=== PATIENT | female | born 1970 | race Caucasian/White ===

== ENCOUNTER 2016-12-06 10:02 | Emergency (ER) | END 2016-12-06 12:11 | disposition home or self-care (01) | DX: R10.31 Right lower quadrant pain (principal) | CPT/HCPCS: 74176; 80053; 81001; 83690; 85025; J2405; J7030; Z7610 ==

== ENCOUNTER 2016-12-13 01:43 | Emergency (ER) | payer MEDICAID ==
[~2016-12-13] VITALS: Ht 154.9 cm; Wt 65.5 kg
[~2016-12-13 01:43] MED LIST: IBUP-1542 PO
[2016-12-13 01:55] VITALS: Ht 154.9 cm; Wt 65.5 kg
--- NOTE | 2016-12-13 04:29 | ERD ---
ER Documentation Chief Complaint Date/Time DATE: 12/13/16 TIME: 04:27 Chief Complaint palpitation and left sided CP after hearing that a family member today HPI 46-year-old presents here in emergency department for complaints of left-sided chest pain and palpitations started last night. Patient started to have the pain after hearing a bad news, a family member yesterday. Patient describes the pain as sharp pain, 6/10 scale, intermittent, accompanied with palpitations. Patient denies any numbness or tingling. The pain does not radiate. ROS All systems reviewed and are negative except as per history of present illness. Medications Home Meds Active Scripts Ibuprofen* (Motrin*) 600 Mg Tab, 600 MG PO Q6H Y for PAIN AND OR ELEVATED TEMP, #30 TAB Prov:SAMEER CHEN PA-C 12/06/16 Allergies Allergies: Coded Allergies: No Known Allergy (Unverified , 12/06/16) PMhx/Soc History of Surgery: Yes (C SECTION, CHOLECYSTECTOMY) Anesthesia Reaction: No Hx Neurological Disorder: No Hx Respiratory Disorders: No Hx Cardiac Disorders: Yes (HIGH CHOLESTEROL ) Hx Psychiatric Problems: No Hx Miscellaneous Medical Probl: No Hx Alcohol Use: No Hx Substance Use: No Hx Tobacco Use: No Smoking Status: Never smoker FmHx Family History: No coronary disease, No diabetes, No other Physical Exam Vitals Vital Signs Date Time Temp Pulse Resp B/P Pulse Ox O2 Delivery O2 Flow Rate FiO2 12/13/16 01:55 98.0 91 24 145/87 98 Physical Exam GENERAL: The patient is well developed and appropriate for usual state of health, in no apparent distress. CHEST: Clear to auscultation bilaterally. There are no rales, wheezes or rhonchi. HEART: Regular rate and rhythm. No murmurs, clicks, rubs or gallops. No S3 or S4. ABDOMEN: Soft, nontender and nondistended. Good bowel sounds. No rebound or guarding. No gross peritonitis. No gross organomegaly or masses. No Kennedy sign or McBurney point tenderness. BACK: No midline or flank tenderness. EXTREMITIES: Equal pulses bilaterally. There is no peripheral clubbing, cyanosis or edema. No focal swelling or erythema. Full range of motion. Grossly neurovascularly intact. NEURO: Alert and oriented. Cranial nerves 2-12 intact. Motor strength in all 4 extremities with 5/5 strength. Sensation grossly intact. Normal speech and gait. SKIN: There is no apparent rash or petechia. The skin is warm and dry. HEMATOLOGIC AND LYMPHATIC: There is no evidence of excessive bruising or lymphedema. No gross cervical, axillary, or inguinal lymphadenopathy. Result Diagram: 12/13/1641112/13/16411 Results 24 hrs Laboratory Tests Test 12/13/16 04:12 Alanine Aminotransferase (ALT/SGPT) 50IU/L Albumin 4.5g/dl Albumin/Globulin Ratio 1.32 Alkaline Phosphatase 103IU/L Anion Gap 18 Aspartate Amino Transf (AST/SGOT) 30IU/L Basophils # 0.010^3/ul Basophils % 0.7% Blood Urea Nitrogen 12mg/dl Calcium Level 10.0mg/dl Carbon Dioxide Level 24mmol/L Chloride Level 106mmol/L Creatinine 0.57mg/dl Direct Bilirubin 0.00mg/dl Eosinophils # 0.110^3/ul Eosinophils % 1.7% Globulin 3.40g/dl Glucose Level 110mg/dl Hematocrit 39.0% Hemoglobin 13.4g/dl Indirect Bilirubin 0.2mg/dl Lymphocytes # 1.710^3/ul Lymphocytes % 25.1% Mean Corpuscular Hemoglobin 29.3pg Mean Corpuscular Hemoglobin Concent 34.3g/dl Mean Corpuscular Volume 85.4fl Mean Platelet Volume 7.9fl Monocytes # 0.410^3/ul Monocytes % 6.2% Neutrophils # 4.610^3/ul Neutrophils % 66.3% Nucleated Red Blood Cells # 0.010^3/ul Nucleated Red Blood Cells % 0.0/100WBC Platelet Count 48944^3/UL Potassium Level 4.3mmol/L Red Blood Count 4.5710^6/ul Red Cell Distribution Width 12.9% Sodium Level 144mmol/L Total Bilirubin 0.2mg/dl Total Protein 7.9g/dl Troponin I < 0.012ng/ml White Blood Count 6.910^3/ul EKG was done, read by me and is normal sinus rhythm at a rate of 90, normal axis , there is no ST changes or changes in the EKG that indicates any cardiac emergencies at this time. Patient's EKG was also reviewed by Dr. Guajardo. Impression: no acute findings on EKG PROCEDURE: XR Chest. CLINICAL INDICATION: Chest Pain. TECHNIQUE: Portable single view of the chest COMPARISON: None. FINDINGS: The cardiomediastinal silhouette appears within normal limits. The lungs are clear and no pleural effusion or significant edema is seen. No bony abnormality is seen. IMPRESSION: No definite acute pulmonary disease. RPTAT: HLBE Jennifer Beckett Physician Date Time Electronically viewed and signed by Jennifer Beckett Physician on 12/13/2016 04 :43 LE/ CC: MATHIEU GOLDBERG NP Procedures/MDM Medical Decision Making: Patient symptoms is likely consistent with anxiety related, possible stress related symptoms. There is low suspicion for cardiopulmonary emergencies at this time. Patient has low risk factors. EKG is normal, there is no changes in the EKG that indicates cardiac emergencies. Chest X-ray does not show cardiopulmonary emergencies at this time. There is low suspicion for aortic aneurysm, myocardial infarction, pneumothorax, pleural effusion, pulmonary embolism, or any other cardiopulmonary emergencies at this time. Cardiac markers are normal. She is advised to see primary care doctor, possibly see a loose hand packer specialist for echocardiogram or possible stress test. Patient is advised to return to emergency department for any worsening symptoms. Patient is given prescription for Xanax up with symptoms. Departure Diagnosis: Primary Impression: Anxiety Condition: Stable Patient Instructions: Anxiety Reaction MATHIEU GOLDBERG NP Dec 13, 2016 04:29
[2016-12-13 04:39] LABS: BASOPHILS % 0.7 % (0.0-2.0); EOSINOPHILS # 0.1 10^3/ul (0.0-0.5); EOSINOPHILS % 1.7 % (0.0-7.0); HEMOGLOBIN 13.4 g/dl (12.0-16.0); LYMPHOCYTES # 1.7 10^3/ul (0.8-2.9); LYMPHOCYTES % 25.1 % (15.0-51.0); MEAN CORPUSCULAR HEMOGLOBIN 29.3 pg (29.0-33.0); MEAN CORPUSCULAR HGB CONC 34.3 g/dl (32.0-37.0); MEAN CORPUSCULAR VOLUME 85.4 fl (82.0-101.0); MEAN PLATELET VOLUME 7.9 fl (7.4-10.4); MONOCYTE # 0.4 10^3/ul (0.3-0.9); MONOCYTES % 6.2 % (0.0-11.0); NEUTROPHIL # 4.6 10^3/ul (1.6-7.5); NEUTROPHILS % 66.3 % (39.0-77.0); PLATELET COUNT 351 10^3/UL (140-440); RED BLOOD COUNT 4.57 10^6/ul (4.20-5.40); RED CELL DISTRIBUTION WIDTH 12.9 % (11.5-14.5); UNCORRECTED WBC 6.9 10^3/ul (4.8-10.8); WHITE BLOOD COUNT 6.9 10^3/ul (4.8-10.8)
[2016-12-13 04:41] LABS: CONDITION 1
[2016-12-13 04:44] LABS: ALBUMIN 4.5 g/dl (3.3-4.9); CHLORIDE 106 mmol/L (97-110)
--- NOTE | 2016-12-13 04:44 | RADRPT ---
PROCEDURE: XR Chest. CLINICAL INDICATION: Chest Pain. TECHNIQUE: Portable single view of the chest COMPARISON: None. FINDINGS: The cardiomediastinal silhouette appears within normal limits. The lungs are clear and no pleural e ffusion or significant edema is seen. No bony abnormality is seen. IMPRESSION: No definite acute pulmonary disease. RPTAT: HLBE Jennifer Beckett Physician Date Time Electronically viewed and signed by Jennifer Beckett, Physician on 12/13/2016 04:43 LE/
[2016-12-13 04:45] LABS: POTASSIUM 4.3 mmol/L (3.5-5.1); SODIUM 144 mmol/L (135-144)
[2016-12-13 04:47] LABS: ALBUMIN/GLOBULIN RATIO 1.32; ALKALINE PHOSPHATASE 103 IU/L (42-121); ANION GAP 18 (8-16); ASPARTATE AMINO TRANSFERASE 30 IU/L (15-46); BILIRUBIN,INDIRECT 0.2 mg/dl (0-1.1); BILIRUBIN,TOTAL 0.2 mg/dl (0.2-1.3); BLOOD UREA NITROGEN 12 mg/dl (7-20); CARBON DIOXIDE 24 mmol/L (21-31); CREATININE 0.57 mg/dl (0.44-1.00); GLUCOSE 110 mg/dl (70-220); TOTAL PROTEIN 7.9 g/dl (6.1-8.1)
[2016-12-13 04:48] LABS: ALANINE AMINOTRANSFERASE 50 IU/L (13-69)
[2016-12-13 05:00] LABS: TROPONIN-I < 0.012 ng/ml (0.00-0.12)
[2016-12-13] MEDS ORDERED: ALPR1TAB2 PO (05:14)
== END 2016-12-13 05:51 | disposition home or self-care (01) ==
LOC: FTE 01:43
DX: F41.9 Anxiety disorder, unspecified (principal)
CPT/HCPCS: 36415; 71010; 80053; 84484; 85025; 93005; Z7502

== ENCOUNTER 2016-12-28 01:26 | Emergency (ER) | payer MEDICAID ==
[~2016-12-28] VITALS: Ht 157.5 cm; Wt 64.1 kg
[~2016-12-28 01:26] MED LIST changes: +ALPR1TAB2 PO
[2016-12-28 01:40] VITALS: Ht 157.5 cm; Wt 64.1 kg
[2016-12-28 02:06] LABS: URINE BLOOD (Dip) POC 2+ (NEGATIVE)
[2016-12-28] MEDS ORDERED: FAMOTIDINE 20 MG INJ IV ONE (02:23)
[2016-12-28] MEDS ORDERED: ONDANSETRON 4 MG INJ IV ONE (02:23)
[2016-12-28] MEDS ORDERED: SOD CHLORIDE 0.9% 1,000 ML IV ONE (02:23)
[2016-12-28] MEDS ORDERED: LIDOCAINE/MYLANTA 40 ML BTL PO ONE (02:24)
[2016-12-28] MEDS ORDERED: LORAZEPAM 2 MG INJ IV ONE (02:30)
[2016-12-28 02:32] LABS: BASOPHILS % 0.4 % (0.0-2.0); EOSINOPHILS % 0.4 % (0.0-7.0); HEMATOCRIT 39.9 % (37.0-47.0); HEMOGLOBIN 13.9 g/dl (12.0-16.0); LYMPHOCYTES # 2.1 10^3/ul (0.8-2.9); LYMPHOCYTES % 19.3 % (15.0-51.0); MEAN CORPUSCULAR HEMOGLOBIN 29.7 pg (29.0-33.0); MEAN CORPUSCULAR HGB CONC 34.7 g/dl (32.0-37.0); MEAN CORPUSCULAR VOLUME 85.5 fl (82.0-101.0); MONOCYTES % 8.9 % (0.0-11.0); NEUTROPHIL # 7.8 10^3/ul (1.6-7.5); PLATELET COUNT 375 10^3/UL (140-440); RED BLOOD COUNT 4.67 10^6/ul (4.20-5.40)
[2016-12-28 02:33] LABS: ADD UMIC YES; URINE BILIRUBIN (Dip) NEGATIVE (NEGATIVE); URINE BLOOD (Dip) 2+ (NEGATIVE); URINE COLOR LT. YELLOW (YELLOW); URINE GLUCOSE (Dip) NEGATIVE (NEGATIVE); URINE KETONES (Dip) NEGATIVE (NEGATIVE); URINE LEUKOCYTE ESTERASE (Dip) NEGATIVE (NEGATIVE); URINE NITRITE (Dip) NEGATIVE (NEGATIVE); URINE UROBILINOGEN (Dip) 0.2 E.U./dL (0.1-1.0)
[2016-12-28 02:34] LABS: URINE TOTAL PROTEIN (Dip) NEGATIVE (NEGATIVE)
[2016-12-28 02:35] LABS: CONDITION 1
[2016-12-28 02:38] VITALS: BP 143/68; PULSE 79; RESP 22; TEMP 98.6
[2016-12-28 02:40] LABS: BACTERIA,URINE RARE; SQUAMOUS EPITHELIAL CELL,UR FEW
[2016-12-28 02:41] LABS: ALBUMIN 4.5 g/dl (3.3-4.9)
[2016-12-28 02:42] LABS: POTASSIUM 3.5 mmol/L (3.5-5.1)
--- NOTE | 2016-12-28 02:42 | RADRPT ---
PROCEDURE: XR Abdomen. CLINICAL INDICATION: Abdominal pain TECHNIQUE: Supine AP views of the abdomen. COMPARISON: None. FINDINGS: Gas and stool are seen within nondilated large bowel. There are no dilated loops of small bowel to suggest a bowel obstruction. No abnormal calcifications are identified. The patient is status post cholecystectomy. IMPRESSION: 1. Nonobstructive bowel gas pattern. 2. Status post cholecystectomy. RPTAT: HTAR .Chaparro Hendrix MD, MD Date Time Electronically viewed and signed by .Chaparro Hendrix MD, MD on 12/28/2016 02:41 .R/
[2016-12-28 02:43] LABS: CREATININE 0.67 mg/dl (0.44-1.00)
[2016-12-28 02:44] LABS: ALBUMIN/GLOBULIN RATIO 1.4; BILIRUBIN,INDIRECT 0.4 mg/dl (0-1.1); BILIRUBIN,TOTAL 0.4 mg/dl (0.2-1.3); TOTAL PROTEIN 7.7 g/dl (6.1-8.1)
[2016-12-28] MEDS: morphine 4 MG/ML VIAL IV ONE ×2 (02:49→02:56)
--- NOTE | 2016-12-28 04:06 | ERD ---
ER Documentation Chief Complaint Date/Time DATE: 12/28/16 TIME: 04:05 Chief Complaint abd pain 8 days HPI This is a 46 year female comes in with abdominal pain for the past 8 days. Pain is epigastric in location. Burning in sensation. Mild to moderate in intensity. Associated nausea and vomiting. 2 episodes of vomiting which are nonbilious. Nonbloody vomit. No change in stool habits. No other current complaints. ROS All systems reviewed and are negative except as per history of present illness. Medications Home Meds Active Scripts Alprazolam* (Xanax*) 1 Mg Tab, 1 MG PO Q8H Y for ANXIETY, #20 TAB Prov:MATHIEU GOLDBERG HANGER 12/13/16 Ibuprofen* (Motrin*) 600 Mg Tab, 600 MG PO Q6H Y for PAIN AND OR ELEVATED TEMP, #30 TAB Prov:SAMEER CHEN PA-C 12/06/16 Allergies Allergies: Coded Allergies: No Known Allergy (Unverified , 12/06/16) PMhx/Soc History of Surgery: Yes (C SECTION, CHOLECYSTECTOMY) Anesthesia Reaction: No Hx Neurological Disorder: No Hx Respiratory Disorders: No Hx Cardiac Disorders: Yes (HIGH CHOLESTEROL ) Hx Psychiatric Problems: Yes Hx Miscellaneous Medical Probl: No Hx Alcohol Use: No Hx Substance Use: No Hx Tobacco Use: No Smoking Status: Never smoker Physical Exam Vitals Vital Signs Date Time Temp Pulse Resp B/P Pulse Ox O2 Delivery O2 Flow Rate FiO2 12/28/16 02:38 98.6 79 22 143/68 98 Room Air 12/28/16 01:40 98.5 74 16 138/74 100 Physical Exam Const: [] Head: Atraumatic Eyes: Normal Conjunctiva ENT: Normal External Ears, Nose and Mouth. Neck: Full range of motion..~ No meningismus. Resp: Clear to auscultation bilaterally Cardio: Regular rate and rhythm, no murmurs Abd: Soft, non tender, non distended. Normal bowel sounds Skin: No petechiae or rashes Back: No midline or flank tenderness Ext: No cyanosis, or edema Neur: Awake and alert Psych: Normal Mood and Affect Result Diagram: 12/28/16 02012/28/16 020 Results 24 hrs Laboratory Tests Test 12/28/16 02:05 12/28/16 02:07 12/28/16 02:08 Alanine Aminotransferase (ALT/SGPT) 44IU/L Albumin 4.5g/dl Albumin/Globulin Ratio 1.40 Alkaline Phosphatase 95IU/L Anion Gap 20 Aspartate Amino Transf (AST/SGOT) 28IU/L Basophils # 0.010^3/ul Basophils % 0.4% Blood Urea Nitrogen 10mg/dl Calcium Level 10.0mg/dl Carbon Dioxide Level 25mmol/L Chloride Level 106mmol/L Creatinine 0.67mg/dl Direct Bilirubin 0.00mg/dl Eosinophils # 0.010^3/ul Eosinophils % 0.4% Globulin 3.20g/dl Glucose Level 107mg/dl Hematocrit 39.9% Hemoglobin 13.9g/dl Indirect Bilirubin 0.4mg/dl Lipase 50U/L Lymphocytes # 2.110^3/ul Lymphocytes % 19.3% Mean Corpuscular Hemoglobin 29.7pg Mean Corpuscular Hemoglobin Concent 34.7g/dl Mean Corpuscular Volume 85.5fl Mean Platelet Volume 8.0fl Monocytes # 1.010^3/ul Monocytes % 8.9% Neutrophils # 7.810^3/ul Neutrophils % 71.0% Nucleated Red Blood Cells # 0.010^3/ul Nucleated Red Blood Cells % 0.0/100WBC Platelet Count 69681^3/UL Potassium Level 3.5mmol/L Red Blood Count 4.6710^6/ul Red Cell Distribution Width 13.0% Sodium Level 147mmol/L Total Bilirubin 0.4mg/dl Total Protein 7.7g/dl White Blood Count 11.010^3/ul Urine Bacteria RARE Urine Bilirubin NEGATIVE Urine Clarity CLEAR Urine Color LT. YELLOW Urine Glucose NEGATIVE% Urine Hemoglobin 2+ Urine Ketones NEGATIVE Urine Leukocyte Esterase NEGATIVE Urine Microscopic RBC 5-10/HPF Urine Microscopic WBC 0-2/HPF Urine Nitrite NEGATIVE Urine Specific [place] <=1.005 Urine Squamous Epithelial Cells FEW Urine Total Protein NEGATIVE Urine Urobilinogen 0.2 E.U./dL Urine pH 6.0 Bedside Urine Blood 2+ Bedside Urine Glucose (UA) Negative Bedside Urine Ketones (LAB) Negative Bedside Urine Leukocyte Esterase (L Negative Bedside Urine Nitrite (LAB) Negative Bedside Urine Protein (LAB) 1+ Bedside Urine pH (LAB) 6.0 Current Medications Medications (Trade) Dose Ordered Sig/Adia Route PRN Reason Start Time Stop Time Status Last Admin Dose Admin Sodium Chloride (NS) 1,000 ml @ 1,000 mls/hr Q1H ONCE IV 12/28/16 02:23 12/28/16 03:22 DC 12/28/16 02:49 Morphine Sulfate (morphine) 4 mg ONCE ONCE IV 12/28/16 02:23 12/28/16 02:24 DC Ondansetron HCl (Zofran Inj) 4 mg ONCE ONCE IV 12/28/16 02:23 12/28/16 02:24 DC 12/28/16 02:49 Famotidine (Pepcid Iv) 20 mg ONCE ONCE IV 12/28/16 02:23 12/28/16 02:24 DC 12/28/16 02:49 Miscellaneous Medication (Gi Cocktail (2)) 40 ml ONCE ONCE PO 12/28/16 02:24 12/28/16 02:25 DC 12/28/16 02:49 Lorazepam (Ativan) 1 mg ONCE ONCE IV 12/28/16 02:30 12/28/16 02:31 DC 12/28/16 02:25 Procedures/MDM CBC: [no e/o of systemic infection or severe anemia] CMP: [no e/o severe acidosis, alkalosis, renal failure, diabetic ketoacidosis, liver disease] Lipase: [no e/o pancreatitis] PT/INR: [normal coagulation] Urine: [no e/o acute infection or hematuria] Medical decision making: This very pleasant patient because of epigastric abdominal pain consistent with acute gastritis. Patient was considered for pancreatitis and cholecystitis, however history and physical examination tend to lean towards gastritis. At this point patient feels much better. She will be discharged home. Follow-up in 8 hours for serial abdominal exams. Departure Diagnosis: Primary Impression: Abdominal pain Abdominal location: epigastric Qualified Code: R10.13 - Epigastric pain Condition: Stable GIBRAN BRAND FredoBradley Dec 28, 2016 04:06
[2016-12-28] MEDS ORDERED: LORA1TAB PO (04:16)
[2016-12-28] MEDS ORDERED: RANI150T9 PO (04:16)
== END 2016-12-28 04:32 | disposition home or self-care (01) ==
LOC: E/R 01:26
DX: R10.13 Epigastric pain (principal); R40.2142 Coma scale, eyes open, spontaneous, at arrival to emergency department; R11.2 Nausea with vomiting, unspecified; R40.2252 Coma scale, best verbal response, oriented, at arrival to emergency department; R40.2362 Coma scale, best motor response, obeys commands, at arrival to emergency department
CPT/HCPCS: 36415; 74000; 80053; 81001; 83690; 85025; 96374; 96375; J2060; J2405; J7030; Z7502; Z7610; 81003; J2270

== ENCOUNTER 2016-12-30 10:16 | Inpatient (IN) | payer MEDICAID ==
[2016-12-30] VITALS (15 sets, daily range): BP systolic 118–147; BP diastolic 52–75; PULSE 62–85; RESP 16–20; TEMP 98.5; BMI 26.2
[~2016-12-30] VITALS: Ht 154.9 cm; Wt 65.3 kg
[~2016-12-30 10:16] MED LIST changes: +LORA1TAB PO; +RANI150T9 PO
[2016-12-30] MEDS ORDERED: morphine 4 MG/ML VIAL IV STA (11:13)
[2016-12-30] MEDS ORDERED: ONDANSETRON 4 MG INJ IV STA (11:13)
[2016-12-30 11:43] LABS: ADD SCAN DIFF NO
[2016-12-30 11:47] LABS: BASOPHILS % 0.4 % (0.0-2.0); EOSINOPHILS % 0.1 % (0.0-7.0); HEMATOCRIT 38.6 % (37.0-47.0); HEMOGLOBIN 13.3 g/dl (12.0-16.0); LYMPHOCYTES # 1.7 10^3/ul (0.8-2.9); LYMPHOCYTES % 18.6 % (15.0-51.0); MEAN CORPUSCULAR HGB CONC 34.5 g/dl (32.0-37.0); MEAN CORPUSCULAR VOLUME 84.1 fl (82.0-101.0); MEAN PLATELET VOLUME 9.6 fl (7.4-10.4); MONOCYTE # 0.5 10^3/ul (0.3-0.9); MONOCYTES % 5.2 % (0.0-11.0); NEUTROPHIL # 6.8 10^3/ul (1.6-7.5); NEUTROPHILS % 75.5 % (39.0-77.0); PLATELET COUNT 379 10^3/UL (140-415); RED BLOOD COUNT 4.59 10^6/ul (4.20-5.40); RED CELL DISTRIBUTION WIDTH 11.9 % (11.5-14.5)
[2016-12-30 11:58] LABS: INR 0.98; PARTIAL THROMBOPLASTIN TIME 29.7 Sec (25.0-35.0)
[2016-12-30 12:04] LABS: ALBUMIN 4.5 g/dl (3.3-4.9); CHLORIDE 102 mmol/L (97-110); SODIUM 142 mmol/L (135-144)
[2016-12-30 12:06] LABS: CREATININE 0.86 mg/dl (0.44-1.00)
[2016-12-30 12:07] LABS: ALANINE AMINOTRANSFERASE 44 IU/L (13-69); ALBUMIN/GLOBULIN RATIO 1.21; ALKALINE PHOSPHATASE 110 IU/L (42-121); ANION GAP 18 (8-16); ASPARTATE AMINO TRANSFERASE 27 IU/L (15-46); BILIRUBIN,INDIRECT 0.5 mg/dl (0-1.1); BILIRUBIN,TOTAL 0.5 mg/dl (0.2-1.3); BLOOD UREA NITROGEN 14 mg/dl (7-20); CALCIUM 9.8 mg/dl (8.4-10.2); CARBON DIOXIDE 26 mmol/L (21-31); GLUCOSE 109 mg/dl (70-220); TOTAL PROTEIN 8.2 g/dl (6.1-8.1)
[2016-12-30 12:14] LABS: ADD UMIC YES; URINE BILIRUBIN (Dip) NEGATIVE (NEGATIVE); URINE BLOOD (Dip) 2+ (NEGATIVE); URINE COLOR LT. YELLOW (YELLOW); URINE GLUCOSE (Dip) NEGATIVE (NEGATIVE); URINE KETONES (Dip) NEGATIVE (NEGATIVE); URINE LEUKOCYTE ESTERASE (Dip) NEGATIVE (NEGATIVE); URINE NITRITE (Dip) NEGATIVE (NEGATIVE); URINE TOTAL PROTEIN (Dip) TRACE (NEGATIVE); URINE UROBILINOGEN (Dip) 0.2 E.U./dL (0.1-1.0)
[2016-12-30 12:20] LABS: TROPONIN-I < 0.012 ng/ml (0.00-0.12)
[2016-12-30] MEDS ORDERED: ONDANSETRON 4 MG INJ IV PRN ×2 (12:30→14:00)
[2016-12-30] MEDS ORDERED: ACETAMINOPHEN 325 MG TAB PO PRN ×2 (12:30→14:00)
--- NOTE | 2016-12-30 12:45 | ERA ---
ER Documentation Chief Complaint Date/Time DATE: 12/30/16 TIME: 12:43 Chief Complaint ABD PAIN X 2 MONTHS , SENT BY PMD FOR ? PANCREATITIS HPI Patient is a 46-year-old female with high cholesterol who presents with abdominal pain. She has right upper quadrant and epigastric abdominal pain which radiates to her back. She said that it started about a month ago and has been coming and going but worsening in intensity. Upon review of old medical records this is the patient's fourth visit to the ER since December 06. She had a CT scan done on December 06 but has not had an ultrasound done as of yet. She has had her gallbladder removed already. She was seen in the emergency department at [facility] this morning and then saw her primary doctor today. Her primary doctor sent her to the ER and told her "you need to be admitted at this time". ROS All systems reviewed and are negative except as per history of present illness. Medications Home Meds Active Scripts Ranitidine Hcl* (Zantac*) 150 Mg Tablet, 150 MG PO BID Y for EPIGASTRIC PAIN, # 30 TAB Prov:GIBRAN BRAND 12/28/16 Lorazepam* (Lorazepam*) 1 Mg Tablet, 1 MG PO Q8H Y for ANXIETY, #10 TAB Prov:GIBRAN BRAND 12/28/16 Alprazolam* (Xanax*) 1 Mg Tab, 1 MG PO Q8H Y for ANXIETY, #20 TAB Prov:MATHIEU GOLDBERG NP 12/13/16 Ibuprofen* (Motrin*) 600 Mg Tab, 600 MG PO Q6H Y for PAIN AND OR ELEVATED TEMP, #30 TAB Prov:SAMEER CHEN PA-C 12/06/16 Allergies Allergies: Coded Allergies: No Known Allergy (Unverified , 12/06/16) PMhx/Soc History of Surgery: Yes (C SECTION, CHOLECYSTECTOMY) Anesthesia Reaction: No Hx Neurological Disorder: No Hx Respiratory Disorders: No Hx Cardiac Disorders: Yes (HIGH CHOLESTEROL ) Hx Psychiatric Problems: Yes Hx Miscellaneous Medical Probl: No Hx Alcohol Use: No Hx Substance Use: No Hx Tobacco Use: No Smoking Status: Never smoker FmHx Family History: No diabetes Physical Exam Vitals Vital Signs Date Time Temp Pulse Resp B/P Pulse Ox O2 Delivery O2 Flow Rate FiO2 12/30/16 12:00 98.1 78 18 150/89 97 Room Air 12/30/16 10:20 98.2 71 18 147/69 97 Physical Exam Const: Mild distress secondary to pain Head: Atraumatic Eyes: Normal Conjunctiva ENT: Normal External Ears, Nose and Mouth. Neck: Full range of motion..~ No meningismus. Resp: Clear to auscultation bilaterally Cardio: Regular rate and rhythm, no murmurs Abd: Soft, epigastric tenderness to palpation without rebound or guarding Skin: No petechiae or rashes Back: No midline or flank tenderness Ext: No cyanosis, or edema Neur: Awake and alert Psych: Normal Mood and Affect Result Diagram: 12/30/16 1127 12/30/16 1127 Results 24 hrs Laboratory Tests Test 12/30/16 11:27 Activated Partial Thromboplast Time 29.7Sec Alanine Aminotransferase (ALT/SGPT) 44IU/L Albumin 4.5g/dl Albumin/Globulin Ratio 1.21 Alkaline Phosphatase 110IU/L Anion Gap 18 Aspartate Amino Transf (AST/SGOT) 27IU/L Basophils # 0.010^3/ul Basophils % 0.4% Blood Urea Nitrogen 14mg/dl Calcium Level 9.8mg/dl Carbon Dioxide Level 26mmol/L Chloride Level 102mmol/L Creatinine 0.86mg/dl Direct Bilirubin 0.00mg/dl Eosinophils # 0.010^3/ul Eosinophils % 0.1% Globulin 3.70g/dl Glucose Level 109mg/dl Hematocrit 38.6% Hemoglobin 13.3g/dl INR International Normalized Ratio 0.98 Indirect Bilirubin 0.5mg/dl Lipase 61U/L Lymphocytes # 1.710^3/ul Lymphocytes % 18.6% Mean Corpuscular Hemoglobin 29.0pg Mean Corpuscular Hemoglobin Concent 34.5g/dl Mean Corpuscular Volume 84.1fl Mean Platelet Volume 9.6fl Monocytes # 0.510^3/ul Monocytes % 5.2% Neutrophils # 6.810^3/ul Neutrophils % 75.5% Nucleated Red Blood Cells # 0.010^3/ul Nucleated Red Blood Cells % 0.0/100WBC Platelet Count 65170^3/UL Potassium Level 4.0mmol/L Prothrombin Time 13.0Sec Prothrombin Time Ratio 1.0 Red Blood Count 4.5910^6/ul Red Cell Distribution Width 11.9% Sodium Level 142mmol/L Total Bilirubin 0.5mg/dl Total Protein 8.2g/dl Troponin I < 0.012ng/ml Urine Bilirubin NEGATIVE Urine Clarity CLEAR Urine Color LT. YELLOW Urine Glucose NEGATIVE% Urine Hemoglobin 2+ Urine Ketones NEGATIVE Urine Leukocyte Esterase NEGATIVE Urine Microscopic RBC 2-5/HPF Urine Microscopic WBC NONE SEEN/HPF Urine Nitrite NEGATIVE Urine Specific [place] <=1.005 Urine Total Protein TRACE Urine Urobilinogen 0.2 E.U./dL Urine pH 5.5 White Blood Count 9.010^3/ul Current Medications Medications (Trade) Dose Ordered Sig/Adia Route PRN Reason Start Time Stop Time Status Last Admin Dose Admin Morphine Sulfate (morphine) 4 mg ONCE STAT IV 12/30/16 11:13 12/30/16 11:15 DC 12/30/16 11:55 Ondansetron HCl (Zofran Inj) 4 mg ONCE STAT IV 12/30/16 11:13 12/30/16 11:15 DC 12/30/16 11:55 Ondansetron HCl (Zofran Inj) 4 mg BRIDGE ORDER PRN IV NAUSEA AND/OR VOMITING 12/30/16 12:30 12/31/16 12:29 Acetaminophen (Tylenol Tab) 650 mg ER BRIDGE PRN PO MILD PAIN/FEVER 12/30/16 12:30 12/31/16 12:29 Procedures/MDM Ultrasound of the abdomen pending at this time. Patient is a 46-year-old female presents with acute abdominal pain. Her laboratory studies are normal. Ultrasound is pending but she has already had her gallbladder removed. CT scan done on December 06 was normal and I do not want to repeat her CT scan at this time. The patient will be admitted to the care of Dr. Benz for failure of outpatient management given this is her second visit to a provider for the same issue since December 06. She was given morphine for pain and Zofran for nausea and vomiting. She will be admitted to a medical surgical bed under the care of Dr. Benz as she has [employer] insurance and her primary doctor does not admit here Departure Diagnosis: Primary Impression: Abdominal pain Qualified Code: R10.13 - Epigastric pain Condition: LAYLA Hope MD Dec 30, 2016 12:45
--- NOTE | 2016-12-30 13:04 | RADRPT ---
PROCEDURE: US Abdomen. CLINICAL INDICATION: abdominal pain TECHNIQUE: Multiple real-time images were acquired of the patient's right upper quadrant abdomen a nd retroperitoneum utilizing a high resolution transducer. COMPARISON: None FINDINGS: The liver demonstrates increased echogenicity. The liver is normal in size and no focal solid lesio ns are seen. The liver measures 14.7 cm in length. The portal vein is patent with normal direction o f flow. No intrahepatic biliary dilatation is seen. The patient is status post cholecystectomy. The common bile duct measures 7 mm in maximal dimension. The visualized portions of the pancreas are unremarkable. The tail of the pancreas is not seen. No free fluid is identified. The right kidney is normal in size, and demonstrate normal echogenicity and cortical thickness. The right kidney measures 10.5 cm in long dimension. There is no evidence of hydronephrosis. There are no kidney stones. RPTAT: AA IMPRESSION: Diffuse fatty infiltration of the liver. Status post cholecystectomy with physiologic dilatation of the CBD. .Radames Lima MD, MD Date Time Electronically viewed and signed by .Radames Lima MD, MD on 12/30/2016 13:03 .S/
[2016-12-30] MEDS ORDERED: hydrALAzine 20 MG INJ IV PRN (14:00)
[2016-12-30] MEDS ORDERED: MAGNESIUM HYDROXIDE 30ML CUP PO PRN (14:00)
[2016-12-30] MEDS ORDERED: NACL 0.9% 3 ML SYG IV SCH (14:00)
[2016-12-30] MEDS ORDERED: HYDROCODONE/APAP (5/325) TAB PO PRN (14:00)
[2016-12-30] MEDS ORDERED: morphine 2 MG INJ IV PRN (14:00)
[2016-12-30] MEDS ORDERED: BISACODYL (EC) 5 MG TAB PO PRN (14:00)
[2016-12-30] MEDS: DEXTROSE 5%-0.45% NACL 1,000 ML IV SCH ×2 (14:30→20:52)
[2016-12-30] MEDS ORDERED: LORAZEPAM 2 MG INJ IV PRN (14:30)
--- NOTE | 2016-12-30 15:18 | HP ---
DATE OF ADMISSION: 12/28/2016 TIME OF EVALUATION: 1330. REASON FOR ADMISSION: Abdominal pain. CONSULTATIONS: Dr. Adrianne Nicholson, Gastroenterology HISTORY OF PRESENT ILLNESS: This is a 46-year-old female with a past medical history of hyperlipidemia and anxiety, who came to the emergency room, sent by the patient's primary care physician, for further evaluation of abdominal pain. As per the patient, she has been having abdominal pain for more than a month on and off. The patient was seen at multiple ERs, including the patient's ER visit at [facility] on 12/28/2016. The patient also had a CT scan of the abdomen and pelvis done on 12/06/2016 at [facility] that showed no CT evidence of any acute intraabdominal or pelvic process. However, this revealed fatty infiltration of the liver. The patient already had a cholecystectomy. The patient went to [facility] in the morning and then she saw her primary care doctor on . Her primary care doctor sent her to the emergency room. The patient was sent for possible pancreatitis. The patient was also complaining of a few episodes of nonbilious, nonbloody vomiting. The patient also verbalized episodes of watery diarrhea. The patient denied any melena or hematochezia. She denied any hematemesis. The patient denied any febrile illnesses. The patient is also complaining of abdominal pain which is primarily epigastric, radiating to the bilateral shoulders posteriorly. She denied any associated diaphoresis or dizziness. In the emergency room, the patient's blood glucose was within normal limits. The patient underwent an abdominal ultrasound that showed diffuse fatty infiltration of the liver. Ultrasound also revealed cholecystectomy with physiological dilatation of the CBD. The patient's LFTs were within normal limits. The patient was treated with IV morphine and IV Zofran in the emergency room. PAST MEDICAL HISTORY: Hyperlipidemia, anxiety. PAST SURGICAL HISTORY: , cholecystectomy. HOME MEDICATIONS: 1. Xanax 1 mg p.o. q.8h. p.r.n. anxiety. 2. Ranitidine 150 mg p.o. b.i.d. ALLERGIES: NO KNOWN DRUG ALLERGIES. SOCIAL HISTORY: The patient lives at home with her family. Denies any use of tobacco, alcohol or illicit drugs. The patient is a homemaker. REVIEW OF SYSTEMS: A 12-point review of systems was obtained and review of systems are negative, other than what is mentioned in the history of present illness. PHYSICAL EXAMINATION: VITAL SIGNS: Temperature 98.1, pulse 78, respiratory rate 18, blood pressure 150/89, oxygen saturation 97% on room air. GENERAL: This is a slightly overweight female, lying in bed, in no apparent distress. HEENT: Head normocephalic and atraumatic. Anicteric sclerae. Conjunctivae clear. ENT: Nasal septum is midline. Oral mucosa is dry. NECK: Supple. No JVD noticed. RESPIRATORY: Clear to auscultation. No adventitious breath sounds heard. No use of accessory muscles of respiration. CARDIAC: Regular rate and rhythm. No murmurs. ABDOMEN: Soft. Tenderness in the epigastric, right upper quadrant, and left upper quadrant. No guarding. Bowel sounds are hypoactive in all 4 quadrants. GENITOURINARY: Deferred. EXTREMITIES: No cyanosis, no clubbing, no edema. Peripheral pulses palpable. NEUROLOGIC: The patient is awake, alert and oriented. Cranial nerves are grossly intact. LABORATORY AND DIAGNOSTIC DATA: WBC 9.0, hemoglobin 13.3, hematocrit 38.6, platelet count 379. Sodium 142, potassium 4.0, chloride 102, carbon dioxide 26 , anion gap 18, BUN 14, creatinine 0.86, glucose 109, calcium 9.8. AST 27, ALT 44, alkaline phosphatase 110. Troponin less than 0.01. Total protein 8.2, albumin 4.5, lipase 61. PT 13.0, INR 0.98, PTT 29.7. Urinalysis: Urine nitrites negative, urine leukocyte esterase negative, urine WBC none seen. Abdominal ultrasound: Diffuse fatty infiltration of the liver. Status post cholecystectomy, with a physiologic dilatation of the CBD. IMPRESSION: This is a 46-year-old female who came to the emergency room with abdominal pain that has been going on for more than a month, who was noticed to have a slightly dilated common bile duct and will be admitted here for further treatment and evaluation. ASSESSMENT AND PLAN: 1. Acute abdominal pain. Etiology is unclear. The patient is status post cholecystectomy. Ultrasound of the abdomen shows CBD dilatation. The patient will undergo a MRCP to evaluate for any underlying biliary tree obstruction. A gastroenterology consult will be obtained. The patient will be kept n.p.o. The patient had a recent CT scan that was done on 12/06/2016 that was negative for any other acute intraabdominal findings. 2. Dyslipidemia. A fasting lipid panel will be obtained. The patient will be kept n.p.o. at this time. The patient will not be started on any statins at this time. 3. Anxiety disorder. The patient will be started on p.r.n. anxiolytics. Plan. The patient will be admitted to inpatient medical/surgical floor. The patient will be kept n.p.o. except for medications. She will be started on DVT prophylaxis and gastrointestinal prophylaxis. The patient will remain a FULL CODE. Activities will be as tolerated. The rest of the patient's management will be based on the clinical course, the results of diagnostic studies, and inputs from consultants. Based on the patient's clinical presentation, she most probably will require at least 2 midnights' stay for further management and evaluation of her clinical presentation. The case and management of this patient was fully discussed with Dr. Fisher. Approximately 50 minutes was spent on the history and physical of this patient. RAMILA FISHER MD, AM/CHERY Conf#: [id number] DID#: [id number] MTDD
[2016-12-30] MEDS ORDERED: LORAZEPAM 2 MG INJ IV ONE (15:30)
--- NOTE | 2016-12-30 16:28 | RADRPT ---
PROCEDURE: MRCP. CLINICAL INDICATION: Right upper quadrant pain. TECHNIQUE: MRCP was performed on the a high-resolution, high Kelly field strength scanner. Patien t was examined without contrast. 3-D coronal rotating MIP images of the biliary tree are available for review. COMPARISON: Correlation with ultrasound from the same day. FINDINGS: Gallbladder is surgically absent. The biliary tree is unremarkable given postcholecystectomy physiol ogy. The proximal CBD measures 7 mm in diameter and tapers smoothly towards the ampulla, within nor mal limits in the postcholecystectomy patient. No filling defect or choledocholithiasis is seen. Th ere is no stricture or obstruction. The pancreatic duct, as visualized, is unremarkable. A small simple appearing 6 cm cyst is present in the right kidney. Otherwise, the liver, spleen, ad renal glands, kidneys, and stomach demonstrate normal signal intensity and morphology. The visualiz ed bowel is unremarkable. IMPRESSION: Status post cholecystectomy with expected MILD prominence of the CBD related to postcholecystectomy physiology. There is no evidence of retained stone or biliary obstruction. RPTAT: JJ .Andrea Yousif MD, Date Time Electronically viewed and signed by .Andrea Yousif MD, on 12/30/2016 16:28 .A/
[2016-12-30 17:20] LABS: THYROID STIMULATING HORMONE 0.916 MIU/L (0.465-4.680)
[2016-12-30] MEDS ORDERED: LIDOCAINE 2% (SDV) 5 ML INJ ONE (18:06)
[2016-12-30] MEDS ORDERED: PROPOFOL 40 ML ONE (18:06)
--- NOTE | 2016-12-30 18:21 | CONS ---
Date/Time of Note Date/Time of Note DATE: 12/30/16 TIME: 18:21 Assessment/Plan Assessment/Plan Additional Assessment/Plan Assessment: * Upper abdominal pain/recurrent * Rule out peptic ulcer disease/GERD/others * Biliary process has been excluded * Pancreatitis has been excluded * Fatty liver * Significant anxiety * Post laparoscopic cholecystectomy 2 years prior Plan: * EGD now, patient was informed of procedure, risks, alternatives and potential complications. She is agreeable to proceed. * Further recommendation will depend on our findings. Consultation Date/Type/Reason Admit Date/Time Dec 30, 2016 at 12:22 Date of Consultation: Dec 30, 2016 Type of Consultation: Gastroenterology Reason for Consultation * Intractable abdominal pain Hx of Present Illness 46-year-old female post laparoscopic cholecystectomy approximately 2 years prior. The patient presents with complaints of epigastric and upper abdominal pain as well as retrosternal burning and episodic dysphagia. Her symptoms started approximately 2 months ago, she has been evaluated multiple ER visits and provided temporary care which has not resolve her problem. The day of hospitalization the patient went to [place] [facility] where she was evaluated and discharged, went to her PCP office and given the severity of her symptoms she was referred to [facility] with a questionable diagnosis of pancreatitis. Evaluation in the emergency room was close no evidence of pancreatitis by amylase and lipase, normal liver function test, ultrasound showing fatty liver and slight dilatation of common bile duct which may be expected postcholecystectomy. MRI MRCP was obtained shows minimal dilatation of the common bile duct as expected, confirmation of fatty liver and no evidence of choledocholithiasis or other abnormalities. At this point patient will be evaluated endoscopically as her symptoms suggest the possibility of peptic ulcer disease/GERD and she has not been evaluated in this regard. The procedure was explained to the patient in detail including risks, benefits and alternatives. She is agreeable to proceed Constitutional: improved, no complaints, other (Significant anxiety) Eyes: no complaints ENT: no complaints Respiratory: no complaints Cardiovascular: no complaints Gastrointestinal: decreased appetite, nausea, other (No overt gastrointestinal bleeding), pain (Epigastric, retrosternal, generally upper abdomen), No blood, No constipation, No diarrhea, No vomiting Genitourinary: no complaints Musculoskeletal: no complaints Skin: no complaints Neurologic: no complaints Endocrine: no complaints Lymphatic: no complaints Psychological: nl mood/affect, no complaints Immunologic: no complaints Past Medical History Medical History: no pertinent history Past Surgical History * Cholecystectomy 2 years prior Family History Significant Family History: no pertinent family hx Social History Alcohol Use: none Smoking Status: Never smoker Drug Use: none Exam/Review of Systems Vital Signs Vitals Vital Signs Date Time Temp Pulse Resp B/P Pulse Ox O2 Delivery O2 Flow Rate FiO2 12/30/16 17:26 98.4 67 16 122/66 97 12/30/16 16:53 Room Air Exam Constitutional: alert, obese, oriented, other (Anxious), well developed Psych: anxiety, nl mood/affect, no complaints Head: atraumatic, normocephalic Eyes: EOMI, PERRL, nl conjunctiva, nl lids, nl sclera ENMT: nl external ears & nose, nl lips & teeth, nl nasal mucosa & septum Neck: non-tender, supple Respiratory: clear to auscultation, normal air movement Cardiovascular: nl pulses, regular rate and rhythm Gastrointestinal: bowel sounds, nl liver, spleen, soft, tender (Upper abdomen more so epigastric area.), No ascites, No distended, No hepatomegaly, No mass, No rebound or guarding, No splenomegaly Musculoskeletal: nl extremities to inspection, nl gait and stance Extremities: normal pulses Neurological: BISTRO SERVER II-XII intact, nl mental status, nl speech, nl strength Skin: nl turgor, No rash or lesions Lymph: nl lymph nodes Results Result Diagram: 12/30/16 1127 12/30/16 1127 Results 24 hrs Laboratory Tests Test 12/30/16 11:27 Activated Partial Thromboplast Time 29.7 Alanine Aminotransferase (ALT/SGPT) 44 Albumin 4.5 Albumin/Globulin Ratio 1.21 Alkaline Phosphatase 110 Anion Gap 18 H Aspartate Amino Transf (AST/SGOT) 27 Basophils # 0.0 Basophils % 0.4 Blood Urea Nitrogen 14 Calcium Level 9.8 Carbon Dioxide Level 26 Chloride Level 102 Cholesterol Level 260 H Cholesterol/HDL Ratio 4.0 Creatinine 0.86 Direct Bilirubin 0.00 Eosinophils # 0.0 Eosinophils % 0.1 Free Thyroxine 1.41 Globulin 3.70 H Glucose Level 109 HDL Cholesterol 65 Hematocrit 38.6 Hemoglobin 13.3 Hemoglobin A1c 5.7 INR International Normalized Ratio 0.98 Indirect Bilirubin 0.5 LDL Cholesterol, Calculated 171 Lipase 61 Lymphocytes # 1.7 Lymphocytes % 18.6 Mean Corpuscular Hemoglobin 29.0 Mean Corpuscular Hemoglobin Concent 34.5 Mean Corpuscular Volume 84.1 Mean Platelet Volume 9.6 Monocytes # 0.5 Monocytes % 5.2 Neutrophils # 6.8 Neutrophils % 75.5 Nucleated Red Blood Cells # 0.0 Nucleated Red Blood Cells % 0.0 Platelet Count 379 Potassium Level 4.0 Prothrombin Time 13.0 Prothrombin Time Ratio 1.0 Red Blood Count 4.59 Red Cell Distribution Width 11.9 Sodium Level 142 Thyroid Stimulating Hormone (TSH) 0.916 Total Bilirubin 0.5 Total Protein 8.2 H Triglycerides Level 119 Troponin I < 0.012 Urine Bilirubin NEGATIVE Urine Clarity CLEAR Urine Color LT. YELLOW Urine Glucose NEGATIVE Urine Hemoglobin 2+ H Urine Ketones NEGATIVE Urine Leukocyte Esterase NEGATIVE Urine Microscopic RBC 2-5 Urine Microscopic WBC NONE SEEN Urine Nitrite NEGATIVE Urine Specific [place] <=1.005 L Urine Total Protein TRACE Urine Urobilinogen 0.2 E.U./dL Urine pH 5.5 White Blood Count 9.0 Medications Medications Current Medications Ondansetron HCl (Zofran Inj) 4 mg Q6H PRN IV NAUSEA AND/OR VOMITING; Start at 14:00 Acetaminophen (Tylenol Tab) 650 mg Q6H PRN PO PAIN LEVEL 1-3 OR FEVER; Start at 14:00 Acetaminophen/ Hydrocodone Bitart ([place] (5/325)) 1 tab Q6H PRN PO MODERATE PAIN LEVEL 4-6; Start 12/30/16 at 14:00 Morphine Sulfate (morphine) 2 mg Q4H PRN IV SEVERE PAIN LEVEL 7-10; Start 12/30 at 14:00 Magnesium Hydroxide (Milk Of Mag) 30 ml DAILY PRN PO CONSTIPATION; Start at 14:00 Bisacodyl (Dulcolax) 5 mg DAILY PRN PO CONSTIPATION; Start 12/30/16 at 14:00 Famotidine (Pepcid Iv) 20 mg Q12 IV ; Start 12/30/16 at 21:00 Hydralazine HCl 10 mg 10 mg Q6H PRN IV SBP>160; Start 12/30/16 at 14:00 Dextrose/Sodium Chloride (D5-1/2ns) 1,000 ml @ 100 mls/hr Q10H IV ; Start 12/30 at 14:30 Lorazepam (Ativan) 1 mg Q6H PRN IV Anxiety; Start 12/30/16 at 14:30 KALPANA ALVES MD Dec 30, 2016 18:21
[2016-12-30] MEDS ORDERED: HYOSCYAMINE 0.125 MG SUBL TAB SL PRN (18:30)
--- NOTE | 2016-12-30 19:04 | GILP ---
DATE OF PROCEDURE: 12/30/2016 NAME OF PROCEDURE: Esophagogastroduodenoscopy with biopsies. SURGEON: Kalpana Nicholson MD. HISTORY AND INDICATIONS: The patient with persistent epigastric abdominal pain and episodic dysphagi a. PREMEDICATION: Monitored anesthesia care by anesthesiologist. INSTRUMENT USED: Olympus panendoscope. TECHNIQUE: After informed consent, with the patient/relatives understanding the procedure, its indic ations, potential risks and complications, including but not limited to: allergic reaction, bleeding , perforation or infection, and after all pertinent questions were answered to the patients satisfac tion, the patient/relatives signed witnessed informed consent. Following this, premedication was administered slowly IV push under careful cardiovascular and respi ratory monitoring with pulse oximetry, automatic blood pressure and seed sorter. Once the sedative effect was achieved the patient was place in the left lateral decubitus, the panen doscope was introduced and advanced under visual control. Careful examination of the upper gastrointestinal tract, both on insertion as well as withdrawal of the instrument disclosed the following findings: ESOPHAGUS: The distal esophagus shows erythema and edema to the mucosa at the EG junction. The grad e is moderate. There is formation of rings and ridges in the esophagus, raising the possibility of the question of eosinophilic esophagitis. Biopsies were obtained. STOMACH: Upon entrance to the stomach air was insufflated, the gastric yeh distended normally. Th ere is erythema and edema in the mucosa of the body and antrum of the stomach, which is moderate in degree. Biopsies were obtained to rule out H. pylori infection. PYLORUS: The pylorus appears patent and within normal limits, with no evidence of gastric outlet obs truction. DUODENUM: The duodenal mucosa was carefully examined in the duodenal bulb as well as the second port ion of the duodenum and appears unremarkable with no evidence of duodenitis, ulcer or neoplasm. The instrument was then withdrawn, the patient tolerated the procedure well and was transfer out of the endoscopy suite awake, and in good condition to continue recovery under observation. IMPRESSION: 1. Moderate esophagitis. 2. Rule out eosinophilic esophagitis. Biopsies were obtained. 3. Gastritis, moderate. Rule out Helicobacter pylori infection. Biopsies were obtained. PLAN: The patient will be treated with PPI b.i.d., Carafate 1 gram q.i.d. and Levsin p.r.n. Pathology will be reviewed as soon as available. Further recommendations will depend on the patient 's clinical course as well as review of biopsies. Dictated By: KALPANA NICHOLSON MS/CHERY Conf#: [id number] DID#: [id number] CC: KALPANA NICHOLSON;*EndCC*
[2016-12-30] MEDS: SUCRALFATE (100 MG/ML) 10ML CUP PO SCH ×2 (20:51→23:14)
[2016-12-30] MEDS ORDERED: FAMOTIDINE 20 MG INJ IV SCH (21:00)
[2016-12-31 00:05] VITALS: BP 119/62; PULSE 65; RESP 17
[2016-12-31 00:57] VITALS: Ht 154.9 cm; Wt 65.3 kg
[2016-12-31 03:45] VITALS: BP 118/61; PULSE 62; RESP 17
[2016-12-31 05:08] LABS: ADD SCAN DIFF NO
[2016-12-31 05:13] LABS: BASOPHILS % 0.5 % (0.0-2.0); EOSINOPHILS # 0.1 10^3/ul (0.0-0.5); EOSINOPHILS % 0.9 % (0.0-7.0); HEMATOCRIT 36.3 % (37.0-47.0); LYMPHOCYTES # 1.9 10^3/ul (0.8-2.9); LYMPHOCYTES % 30.1 % (15.0-51.0); MEAN CORPUSCULAR HEMOGLOBIN 28.6 pg (29.0-33.0); MEAN CORPUSCULAR HGB CONC 33.1 g/dl (32.0-37.0); MEAN CORPUSCULAR VOLUME 86.6 fl (82.0-101.0); MEAN PLATELET VOLUME 9.6 fl (7.4-10.4); MONOCYTE # 0.7 10^3/ul (0.3-0.9); MONOCYTES % 10.4 % (0.0-11.0); NEUTROPHIL # 3.7 10^3/ul (1.6-7.5); NEUTROPHILS % 57.9 % (39.0-77.0); PLATELET COUNT 300 10^3/UL (140-415); RED BLOOD COUNT 4.19 10^6/ul (4.20-5.40); RED CELL DISTRIBUTION WIDTH 11.9 % (11.5-14.5); WHITE BLOOD COUNT 6.5 10^3/ul (4.8-10.8)
[2016-12-31 05:30] LABS: ALBUMIN 3.7 g/dl (3.3-4.9); POTASSIUM 4.5 mmol/L (3.5-5.1)
[2016-12-31 05:33] LABS: ALBUMIN/GLOBULIN RATIO 1.23; BILIRUBIN,INDIRECT 0.5 mg/dl (0-1.1); BILIRUBIN,TOTAL 0.5 mg/dl (0.2-1.3); CREATININE 1.21 mg/dl (0.44-1.00); TOTAL PROTEIN 6.7 g/dl (6.1-8.1)
[2016-12-31 05:36] LABS: MAGNESIUM 2.3 mg/dl (1.7-2.5); PHOSPHORUS 5.1 mg/dl (2.5-4.9)
[2016-12-31] MEDS: PANTOPRAZOLE 40 MG INJ IV SCH ×2 (06:22→17:24)
[2016-12-31] MEDS: DEXTROSE 5%-0.45% NACL 1,000 ML IV SCH (06:24)
[2016-12-31 07:00] VITALS: BP 133/64; RESP 20
[2016-12-31] MEDS: SUCRALFATE (100 MG/ML) 10ML CUP PO SCH ×4 (08:07→21:34)
--- NOTE | 2016-12-31 09:49 | PN ---
Date/Time of Note Date/Time of Note DATE: 12/31/16 TIME: 09:48 Assessment/Plan VTE Prophylaxis VTE Prophylaxis Intervention: SCD's Lines/Catheters IV C[facility]ter Type (from [facility] Peripheral IV Urinary Cath still in place: No Assessment/Plan Chief Complaint/Hosp Course 1. Abdominal pain. Esophagogastroduodenoscopy showing moderate esophagitis and moderate gastritis. The patient was started on proton pump inhibitors and Carafate. Continue Levsin as needed. Diet as tolerated. Continue pain control. 2. Dyslipidemia. The patient will be started on statins. 3. Anxiety disorder. Continue as needed anxiolytics. 4. Vitamin D deficiency. Will start the patient on vitamin D supplements. 5. Acute kidney injury. Most probably secondary to hemodynamics. Will continue the patient on IV hydration. Will avoid any nephrotoxic medications. 6. Fluids, electrolytes, and nutrition. Regular consistency diet as tolerated. 7. DVT prophylaxis. Bilateral sequential compression devices. 8. Gastrointestinal prophylaxis. Proton pump inhibitors. 9. Plan. Continue pain control. Continue proton pump inhibitors and Carafate. Start the patient on vitamin D supplements. Start the patient on statins. Continue IV hydration. Case discussed with Dr. Perkins. Problems: Subjective 24 Hr Interval Summary Free Text/Dictation Complains of minimal abdominal pain. Denies any diarrhea. The patient was started on a regular diet. Exam/Review of Systems Vital Signs Vitals Vital Signs Date Time Temp Pulse Resp B/P Pulse Ox O2 Delivery O2 Flow Rate FiO2 12/31/16 07:00 98.1 62 20 133/64 98 12/31/16 03:45 Room Air 12/30/16 22:00 2.0 Intake and Output 12/30/16 12/30/16 12/31/16 15:00 23:00 07:00 Intake Total 1720 ml Output Total 1400 ml Balance 320 ml Exam GENERAL: This is a slightly overweight female, lying in bed, in no apparent distress. HEENT: Head normocephalic and atraumatic. Sclerae anicteric. Conjunctivae clear. ENT: Nasal septum is midline. Oral mucosa is dry. NECK: Supple. No JVD noticed. RESPIRATORY: Clear to auscultation. No adventitious breath sounds heard. No use of accessory muscles of respiration. CARDIAC: Regular rate and rhythm. No murmurs. ABDOMEN: Soft. Tenderness in the epigastric, right upper quadrant, and left upper quadrant. No guarding. Bowel sounds are hypoactive in all 4 quadrants. GENITOURINARY: Deferred. EXTREMITIES: No cyanosis, no clubbing, no edema. Peripheral pulses palpable. NEUROLOGIC: The patient is awake, alert and oriented. Cranial nerves are grossly intact. Results Result Diagram: 12/31/16 0440 12/31/16 0440 Results 24 hrs Laboratory Tests Test 12/30/16 11:27 12/31/16 04:40 Activated Partial Thromboplast Time 29.7 Alanine Aminotransferase (ALT/SGPT) 44 39 Albumin 4.5 3.7 Albumin/Globulin Ratio 1.21 1.23 Alkaline Phosphatase 110 84 Anion Gap 18 H 16 Aspartate Amino Transf (AST/SGOT) 27 21 Basophils # 0.0 0.0 Basophils % 0.4 0.5 Blood Urea Nitrogen 14 15 Calcium Level 9.8 9.0 Carbon Dioxide Level 26 27 Chloride Level 102 103 Cholesterol Level 260 H Cholesterol/HDL Ratio 4.0 Creatinine 0.86 1.21 H Direct Bilirubin 0.00 0.00 Eosinophils # 0.0 0.1 Eosinophils % 0.1 0.9 Free Thyroxine 1.41 Globulin 3.70 H 3.00 Glucose Level 109 113 HDL Cholesterol 65 Hematocrit 38.6 36.3 L Hemoglobin 13.3 12.0 Hemoglobin A1c 5.7 INR International Normalized Ratio 0.98 Indirect Bilirubin 0.5 0.5 LDL Cholesterol, Calculated 171 Lipase 61 42 Lymphocytes # 1.7 1.9 Lymphocytes % 18.6 30.1 Mean Corpuscular Hemoglobin 29.0 28.6 L Mean Corpuscular Hemoglobin Concent 34.5 33.1 Mean Corpuscular Volume 84.1 86.6 Mean Platelet Volume 9.6 9.6 Monocytes # 0.5 0.7 Monocytes % 5.2 10.4 Neutrophils # 6.8 3.7 Neutrophils % 75.5 57.9 Nucleated Red Blood Cells # 0.0 0.0 Nucleated Red Blood Cells % 0.0 0.0 Platelet Count 379 300 # Potassium Level 4.0 4.5 Prothrombin Time 13.0 Prothrombin Time Ratio 1.0 Red Blood Count 4.59 4.19 L Red Cell Distribution Width 11.9 11.9 Sodium Level 142 141 Thyroid Stimulating Hormone (TSH) 0.916 Total Bilirubin 0.5 0.5 Total Protein 8.2 H 6.7 # Triglycerides Level 119 Troponin I < 0.012 Urine Bilirubin NEGATIVE Urine Clarity CLEAR Urine Color LT. YELLOW Urine Glucose NEGATIVE Urine Hemoglobin 2+ H Urine Ketones NEGATIVE Urine Leukocyte Esterase NEGATIVE Urine Microscopic RBC 2-5 Urine Microscopic WBC NONE SEEN Urine Nitrite NEGATIVE Urine Specific [place] <=1.005 L Urine Total Protein TRACE Urine Urobilinogen 0.2 E.U./dL Urine pH 5.5 Vitamin D 1,25-Dihydroxy 23.8 L White Blood Count 9.0 6.5 # Amylase Level 55 Magnesium Level 2.3 Phosphorus Level 5.1 H Medications Medications Current Medications Ondansetron HCl (Zofran Inj) 4 mg Q6H PRN IV NAUSEA AND/OR VOMITING; Start at 14:00 Acetaminophen (Tylenol Tab) 650 mg Q6H PRN PO PAIN LEVEL 1-3 OR FEVER; Start at 14:00 Acetaminophen/ Hydrocodone Bitart ([place] (5/325)) 1 tab Q6H PRN PO MODERATE PAIN LEVEL 4-6 Last administered on 12/30/16 23:23; Admin Dose 1 TAB; Start at 14:00 Morphine Sulfate (morphine) 2 mg Q4H PRN IV SEVERE PAIN LEVEL 7-10 Last administered on 12/30/16 20:51; Admin Dose 2 MG; Start 12/30/16 at 14:00 Magnesium Hydroxide (Milk Of Mag) 30 ml DAILY PRN PO CONSTIPATION; Start at 14:00 Bisacodyl (Dulcolax) 5 mg DAILY PRN PO CONSTIPATION; Start 12/30/16 at 14:00 Hydralazine HCl 10 mg 10 mg Q6H PRN IV SBP>160; Start 12/30/16 at 14:00 Dextrose/Sodium Chloride (D5-1/2ns) 1,000 ml @ 100 mls/hr Q10H IV Last administered on 12/31/16 06:24; Admin Dose 100 MLS/HR; Start 12/30/16 at 14:30 Lorazepam (Ativan) 1 mg Q6H PRN IV Anxiety; Start 12/30/16 at 14:30 Pantoprazole (Protonix Iv) 40 mg BID@06,18 IV Last administered on 12/31/16 06 :22; Admin Dose 40 MG; Start 12/31/16 at 06:00 Sucralfate (Carafate Susp) 1 gm QID PO Last administered on 12/31/16 08:07; Admin Dose 1 GM; Start 12/30/16 at 18:30 Hyoscyamine (Levsin (Sl)) 0.125 mg Q4H PRN SL abd pain; Start 12/30/16 at 18:30 Cholecalciferol (Vitamin D) 1,000 unit DAILY PO ; Start 12/31/16 at 10:00 Atorvastatin Calcium (Lipitor) 20 mg HS PO ; Start 12/31/16 at 21:00; Status UNV RAMILA MARISCAL ABSTRACT MANAGER Dec 31, 2016 09:49
--- NOTE | 2016-12-31 11:34 | PN ---
Date/Time of Note Date/Time of Note DATE: 12/31/16 TIME: 11:30 Assessment/Plan VTE Prophylaxis VTE Prophylaxis Intervention: SCD's Lines/Catheters IV Catheter Type (from [facility]): Peripheral IV Urinary Cath still in place: No Assessment/Plan Assessment/Plan Assessment: * Upper abdominal pain/recurrent-Improved * Gastritis/GERD * Biliary process has been excluded * Pancreatitis has been excluded * Fatty liver * Significant anxiety * Post laparoscopic cholecystectomy 2 years prior Plan: * Continue present management * Safe for outpatient management if tolerating diet Exam/Review of Systems Vital Signs Vitals Vital Signs Date Time Temp Pulse Resp B/P Pulse Ox O2 Delivery O2 Flow Rate FiO2 12/31/16 07:00 98.1 62 20 133/64 98 12/31/16 03:45 Room Air 12/30/16 22:00 2.0 Intake and Output 12/30/16 12/30/16 12/31/16 15:00 23:00 07:00 Intake Total 1720 ml Output Total 1400 ml Balance 320 ml Exam Constitutional: alert, obese, oriented, other (Anxious), well developed Psych: anxiety, nl mood/affect, no complaints Head: atraumatic, normocephalic Eyes: EOMI, PERRL, nl conjunctiva, nl lids, nl sclera ENMT: nl external ears & nose, nl lips & teeth, nl nasal mucosa & septum Neck: non-tender, supple Respiratory: clear to auscultation, normal air movement Cardiovascular: nl pulses, regular rate and rhythm Gastrointestinal: bowel sounds, nl liver, spleen, soft, tender (Upper abdomen more so epigastric area.), No ascites, No distended, No hepatomegaly, No mass, No rebound or guarding, No splenomegaly Musculoskeletal: nl extremities to inspection, nl gait and stance Extremities: normal pulses Neurological: PRODUCTION MANUFACTURING WORKER II-XII intact, nl mental status, nl speech, nl strength Skin: nl turgor, No rash or lesions Lymph: nl lymph nodes Results Result Diagram: 12/31/1643912/31/16439 Results 24 hrs Laboratory Tests Test 12/31/16 04:40 Alanine Aminotransferase (ALT/SGPT) 39 Albumin 3.7 Albumin/Globulin Ratio 1.23 Alkaline Phosphatase 84 Amylase Level 55 Anion Gap 16 Aspartate Amino Transf (AST/SGOT) 21 Basophils # 0.0 Basophils % 0.5 Blood Urea Nitrogen 15 Calcium Level 9.0 Carbon Dioxide Level 27 Chloride Level 103 Creatinine 1.21 H Direct Bilirubin 0.00 Eosinophils # 0.1 Eosinophils % 0.9 Globulin 3.00 Glucose Level 113 Hematocrit 36.3 L Hemoglobin 12.0 Indirect Bilirubin 0.5 Lipase 42 Lymphocytes # 1.9 Lymphocytes % 30.1 Magnesium Level 2.3 Mean Corpuscular Hemoglobin 28.6 L Mean Corpuscular Hemoglobin Concent 33.1 Mean Corpuscular Volume 86.6 Mean Platelet Volume 9.6 Monocytes # 0.7 Monocytes % 10.4 Neutrophils # 3.7 Neutrophils % 57.9 Nucleated Red Blood Cells # 0.0 Nucleated Red Blood Cells % 0.0 Phosphorus Level 5.1 H Platelet Count 300 # Potassium Level 4.5 Red Blood Count 4.19 L Red Cell Distribution Width 11.9 Sodium Level 141 Total Bilirubin 0.5 Total Protein 6.7 # White Blood Count 6.5 # Medications Medications Current Medications Ondansetron HCl (Zofran Inj) 4 mg Q6H PRN IV NAUSEA AND/OR VOMITING; Start at 14:00 Acetaminophen (Tylenol Tab) 650 mg Q6H PRN PO PAIN LEVEL 1-3 OR FEVER; Start at 14:00 Acetaminophen/ Hydrocodone Bitart ([place] (5/325)) 1 tab Q6H PRN PO MODERATE PAIN LEVEL 4-6 Last administered on 12/30/16 23:23; Admin Dose 1 TAB; Start at 14:00 Morphine Sulfate (morphine) 2 mg Q4H PRN IV SEVERE PAIN LEVEL 7-10 Last administered on 12/30/16 20:51; Admin Dose 2 MG; Start 12/30/16 at 14:00 Magnesium Hydroxide (Milk Of Mag) 30 ml DAILY PRN PO CONSTIPATION; Start at 14:00 Bisacodyl (Dulcolax) 5 mg DAILY PRN PO CONSTIPATION; Start 12/30/16 at 14:00 Hydralazine HCl 10 mg 10 mg Q6H PRN IV SBP>160; Start 12/30/16 at 14:00 Dextrose/Sodium Chloride (D5-1/2ns) 1,000 ml @ 100 mls/hr Q10H IV Last administered on 12/31/16 06:24; Admin Dose 100 MLS/HR; Start 12/30/16 at 14:30 Lorazepam (Ativan) 1 mg Q6H PRN IV Anxiety; Start 12/30/16 at 14:30 Pantoprazole (Protonix Iv) 40 mg BID@,18 IV Last administered on 12/31/16 06 :22; Admin Dose 40 MG; Start 12/31/16 at 06:00 Sucralfate (Carafate Susp) 1 gm QID PO Last administered on 12/31/16 08:07; Admin Dose 1 GM; Start 12/30/16 at 18:30 Hyoscyamine (Levsin (Sl)) 0.125 mg Q4H PRN SL abd pain; Start 12/30/16 at 18:30 Cholecalciferol (Vitamin D) 1,000 unit DAILY PO ; Start 12/31/16 at 10:00 Atorvastatin Calcium (Lipitor) 20 mg HS PO ; Start 12/31/16 at 21:00 KALPANA ALVES MD Dec 31, 2016 11:34
[2016-12-31] MEDS: CHOLECALCIFEROL 1,000 UNIT TAB PO SCH (11:51)
[2016-12-31 20:00] VITALS: BP 132/64; RESP 18
[2016-12-31] MEDS ORDERED: ATORVASTATIN 20 MG TAB PO SCH (21:00)
[2017-01-01 05:05] LABS: ADD SCAN DIFF NO
[2017-01-01 05:12] LABS: BASOPHILS % 0.6 % (0.0-2.0); EOSINOPHILS # 0.1 10^3/ul (0.0-0.5); EOSINOPHILS % 1.4 % (0.0-7.0); HEMATOCRIT 37.4 % (37.0-47.0); HEMOGLOBIN 12.6 g/dl (12.0-16.0); LYMPHOCYTES # 1.6 10^3/ul (0.8-2.9); LYMPHOCYTES % 24.5 % (15.0-51.0); MEAN CORPUSCULAR HEMOGLOBIN 28.9 pg (29.0-33.0); MEAN CORPUSCULAR HGB CONC 33.7 g/dl (32.0-37.0); MEAN CORPUSCULAR VOLUME 85.8 fl (82.0-101.0); MEAN PLATELET VOLUME 9.8 fl (7.4-10.4); MONOCYTE # 0.6 10^3/ul (0.3-0.9); MONOCYTES % 9.3 % (0.0-11.0); NEUTROPHIL # 4.3 10^3/ul (1.6-7.5); NEUTROPHILS % 63.9 % (39.0-77.0); PLATELET COUNT 293 10^3/UL (140-415); RED BLOOD COUNT 4.36 10^6/ul (4.20-5.40); RED CELL DISTRIBUTION WIDTH 11.8 % (11.5-14.5); WHITE BLOOD COUNT 6.7 10^3/ul (4.8-10.8)
[2017-01-01 05:51] LABS: PHOSPHORUS 5.4 mg/dl (2.5-4.9); POTASSIUM 4.4 mmol/L (3.5-5.1)
[2017-01-01 05:52] LABS: MAGNESIUM 2.4 mg/dl (1.7-2.5)
[2017-01-01 05:54] LABS: CREATININE 1.37 mg/dl (0.44-1.00)
[2017-01-01 05:55] LABS: CALCIUM 9.5 mg/dl (8.4-10.2)
[2017-01-01] MEDS ORDERED: PANTOPRAZOLE (EC) 40 MG TAB PO SCH (06:00)
[2017-01-01] MEDS: CHOLECALCIFEROL 1,000 UNIT TAB PO SCH (08:30)
[2017-01-01] MEDS: SUCRALFATE (100 MG/ML) 10ML CUP PO SCH ×2 (08:30→13:36)
[2017-01-01 08:44] VITALS: BP 115/56; RESP 17
--- NOTE | 2017-01-01 08:53 | PDOCDIS ---
Discharge Instructions DIAGNOSIS Discharge Diagnosis: Gastritis, esophagitis. CONDITION Patient Condition: Stable HOME CARE INSTRUCTIONS: Diet Instructions: Low Fat /Cholesterol FOLLOW UP/APPOINTMENTS Appointments Isaiah Dowell MD Specialty: Internal Medicine Office Address: [address] [place], [place] [id number] Office OTHER ORDERS: Other Orders: 1. Take a low cholesterol diet as tolerated. 2. Take medications as per prescription. Avoid using NSAIDs [Motrin, ibuprofen , naproxen etc.]. 3. Resume activities as tolerated. 4. Make an appointment with her primary care doctor in 2 weeks. If you do not have a primary care doctor, please see Dr. Isaiah Dowell. Please call for appointment. 5. Please go to the nearest emergency room if you have severe abdominal pain, blood in stool or vomitus, or any other unusual signs/symptoms. RAMILA MARISCAL NP Jan 01, 2017 08:53
[2017-01-01] MEDS ORDERED: CHOL100062 PO (08:57)
[2017-01-01] MEDS ORDERED: ATOR20TA65 PO (08:57)
[2017-01-01] MEDS ORDERED: CARAS PO (08:57)
[2017-01-01] MEDS ORDERED: PANT40TA4 PO (08:57)
[2017-01-01] MEDS ORDERED: [UNRECOGNIZED DRUG - OTHER] SL (08:57)
[2017-01-01] MEDS ORDERED: SOD CHLORIDE 0.9% 1,000 ML IV ONE (09:00)
--- NOTE | 2017-01-01 10:05 | DS ---
DATE OF ADMISSION: 12/30/2016 DATE OF DISCHARGE: 01/01/2017 FINAL DIAGNOSES 1. Abdominal pain secondary to esophagitis and gastritis. 2. Moderate esophagitis. 3. Moderate gastritis. 4. Dyslipidemia. 5. Anxiety disorder. 6. Vitamin D deficiency. 7. Acute kidney injury. CONSULTANTS: Dr. Adrianne Nicholson, gastroenterology. HOSPITAL COURSE: This is a 46-year-old female with past medical history of hyperlipidemia and anxiety who came to the emergency room, sent by the patient's primary care physician for further evaluation of abdominal pain. The patient has been visiting multiple ERs for the past few weeks because of abdominal pain. The patient already had cholecystectomy in the past. The patient also verbalized nonbloody, nonbilious vomiting. The patient verbalized a few episodes of watery diarrhea. In the emergency room, the patient underwent a gallbladder ultrasound that revealed physiologic dilatation of the CBD. The patient's LFTs were within normal limits. Provided the patient's history of present illness and the diagnostic findings, a clinical decision was made to admit the patient to inpatient setting to have her further evaluated. The patient was admitted to inpatient medical/surgical floor. The patient was kept n.p.o. The patient was started on analgesics. Gastroenterology consult was called. The patient underwent an esophagogastroduodenoscopy on 12/30/2016 that showed moderate esophagitis and moderate gastritis. Gastroenterology recommended keeping the patient on proton pump inhibitors, along with mucosal barrier protectants. The patient's abdominal pain improved with the treatment strategy. The patient was restarted on a regular consistency diet. The patient was able to tolerate the regular consistency diet without any significant gastrointestinal symptoms. The patient's abdominal pain improved throughout the patient's hospital course. Postprocedure, the patient was noticed to have some acute kidney injury. This could be most probably from dehydration. The patient was given some IV fluids to help with this. The patient also has underlying anxiety disorder. She was maintained on anxiolytics for the same. The patient was also noticed to have a vitamin D deficiency. Hence, the patient was started on vitamin D supplements. The patient has history of dyslipidemia, and the patient's lipid panel revealed this with a total cholesterol of and 260 and LDL of 171. Hence, the patient was started on statins. The patient had a stable hospital course. The patient was cleared by gastroenterology to be discharged home. DISCHARGE DISPOSITION AND PLAN: The patient will be discharged home today. The patient was instructed to take a low-cholesterol diet as tolerated. She was instructed to take medications as per prescription, and to avoid using NSAIDs. She was instructed to resume activities as tolerated. She was instructed to make an appointment with her primary care physician in 2 weeks, and if she does have a primary care physician to please call Dr. Isaiah Dowell. The patient was instructed to go to the nearest emergency room if she has severe abdominal pain or blood in stool or vomitus or any other unusual signs or symptoms. The patient verbalized understanding of her discharge instructions. CONDITION AT DISCHARGE: Stable. DISCHARGE MEDICATIONS 1. Atorvastatin 20 mg p.o. at bedtime. 2. Vitamin D3 at 1000 units p.o. daily. 3. Hyoscyamine 0.125 mg sublingual q.4 hours p.r.n. abdominal pain. 4. Protonix 10 mg p.o. b.i.d. 5. Carafate 1 gram p.o. q.i.d. 6. Lorazepam 1 mg p.o. q. 8 hours p.r.n. anxiety. PERTINENT LABORATORY AND DIAGNOSTIC DATA AND PROCEDURES: 1. Esophagogastroduodenoscopy. Moderate distal esophagitis, rule out eosinophilic esophagitis. Moderate gastritis. Rule out Helicobacter pylori infection. 2. Abdominal ultrasound. Diffuse fatty infiltration of the liver. Status post cholecystectomy with physiologic dilatation of the common bile duct. 3. Abdominal MRI. Status post cholecystectomy with expected mild prominence of the CBD related to post-cholecystectomy physiology. There was no evidence of retained stone or biliary obstruction. 4. Latest CBC: WBC 6.7, hemoglobin 12.6, hematocrit 37.4, platelet count 293. 5. Latest BMP: Sodium 145, potassium 4.4, chloride 105, carbon dioxide 28, anion gap 15, BUN 19, creatinine 1.37, glucose 106, calcium 9.5, phosphorus 5.4 , magnesium 2.4. 6. Hemoglobin A1c 5.7. 7. Fasting lipid panel: Triglycerides 119, total cholesterol 260, LDL 171, AST of 65. 8. Vitamin D: 23.8. 9. Thyroid panel: TSH 0.916, free T4 of 1.41. At this time, I would like to thank Dr. Nicholson for seeing the patient, doing the necessary procedures, and providing clinical recommendations. The case and management of this patient was fully discussed with Dr. Fisher. Approximately 35 minutes were spent on coordinating the discharge on this patient. RAMILA FISHER MD, AM/CHERY Conf#: [id number] DID#: [id number] MTDD
== END 2017-01-01 15:05 | disposition home or self-care (01) | DRG 392 ==
LOC: E/R 10:16 → MS1 12:22
PROVIDERS: ADMIT Family Medicine; ATTEND Family Medicine
PROC: 0DB58ZX Excision of Esophagus, Via Natural or Artificial Opening Endoscopic, Diagnostic (ICD-10-PCS; 2016-12-30)
PROC: 0DB68ZX Excision of Stomach, Via Natural or Artificial Opening Endoscopic, Diagnostic (ICD-10-PCS; principal; 2016-12-30 18:13)
DX: K29.70 Gastritis, unspecified, without bleeding (principal); N17.9 Acute kidney failure, unspecified; K76.0 Fatty (change of) liver, not elsewhere classified; E55.9 Vitamin D deficiency, unspecified; K20.9 Esophagitis, unspecified; E78.5 Hyperlipidemia, unspecified; F41.9 Anxiety disorder, unspecified; E86.0 Dehydration
CPT/HCPCS: 36415; 74181; 76705; 80048; 80053; 80061; 81001; 81003; 82150; 82652; 83036; 83690; 83735; 84100; 84439; 84443; 84484; 85025; 85610; 85730; 86674; 87045; 87075; 88305; 88312; 88313; 93005; 96374; 96375; C9113; J2060; J2270; J2405; J7030; J7042

== ENCOUNTER 2018-03-17 08:07 | Emergency (ER) | END 2018-03-17 10:47 | disposition home or self-care (01) ==

== ENCOUNTER 2018-10-02 00:48 | Emergency (ER) | END 2018-10-02 05:27 | disposition home or self-care (01) ==

== ENCOUNTER 2019-06-10 14:27 | Emergency (ER) | payer MEDICAID ==
[~2019-06-10] VITALS: Ht 157.5 cm; Wt 67.0 kg
[~2019-06-10 14:27] MED LIST changes: -ALPR1TAB2 PO; +ATOR20TA65 PO; +CHOLESTEROL PO; -RANI150T9 PO; +SULF1TAB31 PO
[2019-06-10 14:29] VITALS: Ht 157.5 cm; Wt 67.0 kg
--- NOTE | 2019-06-10 15:54 | ERD ---
ER Documentation Chief Complaint Chief Complaint chest pain HPI The patient is a 48-year-old female, presenting to the ER because of intermittent left-sided chest discomfort, worse with movement, intermittent for the last 2 weeks, had similar symptoms previously. She denies fever, chills, neck pain, chest pain with vomiting/radiation/exertion/diaphoresis, dyspnea. She complains of mild epigastric abdominal pain, denies vomiting, dysuria, diarrhea, constipation. She does not smoke nor drink, works as a maintenance planner Past medical history: Anxiety, dyslipidemia, gastritis Past surgical history: , cholecystectomy ROS All systems reviewed and are negative except as per history of present illness. Medications Home Meds Active Scripts Sulfamethoxazole/Trimethoprim* (Bactrim Ds* Tablet) 1 Each Tablet, 1 TAB PO BID, #14 TAB Prov:SAMUEL COX MD 06/10/19 Ibuprofen* (Motrin*) 600 Mg Tab, 600 MG PO Q6H PRN for PAIN AND OR ELEVATED TEMP, #20 TAB Prov:SAMUEL COX MD 06/10/19 Reported Medications [Cholesterol] No Conflict Check, 1 TAB PO DAILY 06/10/19 Discontinued Scripts Lorazepam* (Lorazepam*) 1 Mg Tablet, 1 MG PO Q8H PRN for ANXIETY, #10 TAB Prov:GIBRAN BRAND 10/02/18 Atorvastatin Calcium (Atorvastatin Calcium) 20 Mg Tablet, 20 MG PO HS for 30 Days, TAB Prov:RAMILA MARISCAL NP 01/01/17 Allergies Allergies: Coded Allergies: No Known Allergy (Unverified , 06/10/19) PMhx/Soc History of Surgery: Yes (C section, Cholecystectomy) Anesthesia Reaction: No Hx Neurological Disorder: No Hx Respiratory Disorders: No Hx Cardiac Disorders: No Hx Psychiatric Problems: No Hx Miscellaneous Medical Probl: Yes (Abd pain, High cholesterol) Hx Alcohol Use: No Hx Substance Use: No Hx Tobacco Use: No Physical Exam Vitals Vital Signs Date Temp Pulse Resp B/P (MAP) Pulse Ox O2 O2 Flow FiO2 Time Delivery Rate 06/10/19 98.0 63 15 102/62 100 Room Air 17:50 (75) 06/10/19 99.2 71 20 134/63 97 14:29 (86) Physical Exam Const: No acute distress. Head: Atraumatic. Eyes: Normal Conjunctiva. ENT: Normal External Ears, Nose and Mouth. Neck: Full range of motion. No meningismus. Resp: Clear to auscultation bilaterally. Cardio: Regular rate and rhythm. Abd: Soft, non distended, normal bowel sounds, non tender. Skin: No petechiae or rashes. Back: No midline or flank tenderness. Ext: No cyanosis, or edema. Neur: Awake and alert. No focal deficit Psych: Normal Mood and Affect. Result Diagram: 06/10/19 1608 06/10/19 1607 Results 24 hrs Laboratory Tests Test 06/10/19 16:07 06/10/19 16:08 06/10/19 16:35 06/10/19 16:37 Sodium Level 140 mmol/L Potassium Level 4.2 mmol/L Chloride Level 106 mmol/L Carbon Dioxide Level 25 mmol/L Anion Gap 9 Blood Urea Nitrogen 13 mg/dl Creatinine 0.62 mg/dl Est Glomerular > 60 mL/min Filtrat Rate mL/min Glucose Level 98 mg/dl Calcium Level 9.6 mg/dl Total Bilirubin 0.5 mg/dl Direct Bilirubin 0.00 mg/dl Indirect Bilirubin 0.5 mg/dl Aspartate Amino 25 IU/L Transf (AST/SGOT) Alanine 36 IU/L Aminotransferase (AL T/SGPT) Alkaline Phosphatase 79 IU/L Troponin I < 0.012 ng/ml Total Protein 7.6 g/dl Albumin 4.3 g/dl Globulin 3.30 g/dl Albumin/Globulin 1.30 Ratio Lipase 79 U/L White Blood Count 6.0 10^3/ul Red Blood Count 4.66 10^6/ul Hemoglobin 13.4 g/dl Hematocrit 40.3 % Mean Corpuscular 86.5 fl Volume Mean Corpuscular 28.8 pg Hemoglobin Mean Corpuscular 33.3 g/dl Hemoglobin Concent Red Cell 12.2 % Distribution Width Platelet Count 290 10^3/UL Mean Platelet Volume 9.7 fl Immature 0.200 % Granulocytes % Neutrophils % 39.9 % Lymphocytes % 45.9 % Monocytes % 11.2 % Eosinophils % 2.0 % Basophils % 0.8 % Nucleated Red Blood 0.0 /100WBC Cells % Immature 0.010 10^3/ul Granulocytes # Neutrophils # 2.4 10^3/ul Lymphocytes # 2.7 10^3/ul Monocytes # 0.7 10^3/ul Eosinophils # 0.1 10^3/ul Basophils # 0.1 10^3/ul Nucleated Red Blood 0.0 10^3/ul Cells # Bedside Urine pH 6.0 (LAB) Bedside Urine Negative Protein (LAB) Bedside Urine Negative Glucose (UA) Bedside Urine Negative Ketones (LAB) Bedside Urine Blood 2+ Bedside Urine Negative Nitrite (LAB) Bedside Urine 2+ Leukocyte Esterase (L POC Beta HCG, NEGATIVE Qualitative Current Medications Medications Dose Sig/Adia Start Time Status Last (Trade) Ordered Route PRN Stop Time Admin Dose Reason Admin Ketorolac 30 mg ONCE STAT 06/10/19 DC 06/10/19 Tromethamine IV 16:02 06/10/19 16:40 (Toradol) 16:03 Procedures/[place] [id number] Radiology Main Line: [phone] DIAGNOSTIC IMAGING REPORT Patient: TESS HAMILTON : 1970 Age: 48 Sex: F MR #: [id number] DOS: 06/10/19 1602 Ordering MD: SAMUEL COX MD Location: E/R Room/Bed: PROCEDURE: XR Chest, 1 View CLINICAL INDICATION: Pain. TECHNIQUE: Frontal view of the chest. COMPARISON: 12/17/2016 (12/17/2016) FINDINGS: LUNGS: Unremarkable. No consolidation. PLEURAL SPACE: Unremarkable. No pneumothorax. HEART: Unremarkable. No cardiomegaly. MEDIASTINUM: Unremarkable. BONES/JOINTS: Unremarkable. IMPRESSION: 1. No acute cardiopulmonary disease demonstrated. 2. There is no significant interval change from the previous study. RPTAT: [facility] Darrel Orantes Physician Radio Mechanic Helper Date Time Electronically viewed and signed by Darrel Orantes Physician Radio Mechanic Helper on 06/10/2019 16:31 RmC/ CC: SAMUEL COX MD [phone] EKG: At 2:38 PM read by emergency physician Rate/Rhythm: Normal Sinus Rhythm 72 beats/min QRS, ST, T-waves: No ST elevation, no T inversion Impression: Normal EKG EKG: At 4:58PM read by emergency physician Rate/Rhythm: Normal Sinus Rhythm 60 beats/min QRS, ST, T-waves: No ST elevation, no T inversion Impression: Normal EKG MEDICAL MAKING DECISION: The patient is a 48-year-old female, presenting with acute chest wall pain, acute cystitis. She was treated with Toradol 30 mg IV for pain with good response, is stable for outpatient follow-up The differential diagnoses considered include but are not limited to acute coronary syndrome, acute myocardial infarction, pericarditis, pulmonary embolism, aortic dissection, pneumonia, pleural effusion, pneumothorax, GERD, chest wall pain. Departure Diagnosis: Primary Impression: Chest wall pain Additional Impression: UTI (urinary tract infection) Condition: Good Comments She was discharged with Bactrim DS and Motrin I discussed the findings with the patient. I advised the patient to follow-up with the primary physician in about 1-2 days, sooner if needed and return if any concern. Disclaimer: Inadvertent spelling and grammatical errors are likely due to EHR/dictation software use and do not reflect on the overall quality of patient care. Also, please note that the electronic time recorded on this note does not necessarily reflect the actual time of the patient encounter. SAMUEL COX MD Jun 10, 2019 15:54
[2019-06-10] MEDS ORDERED: KETOROLAC 30 MG INJ IV STA (16:02)
[2019-06-10 17:50] VITALS: BP 102/62; PULSE 63; RESP 15
== END 2019-06-10 17:50 | disposition home or self-care (01) ==
LOC: E/R 14:27
DX: N39.0 Urinary tract infection, site not specified (principal); R40.2142 Coma scale, eyes open, spontaneous, at arrival to emergency department; R40.2252 Coma scale, best verbal response, oriented, at arrival to emergency department; R40.2362 Coma scale, best motor response, obeys commands, at arrival to emergency department
CPT/HCPCS: 36415; 71045; 80053; 81003; 81025; 83690; 84484; 85025; 93005; 96374; J1885; Z7502